=== PATIENT | male | born 1960 | race Caucasian/White ===

== ENCOUNTER 2018-12-23 19:46 | Observation (INO) | payer MEDICARE, OTHER ==
[2018-12-23 21:06] LABS: Absolute Lymphocytes (CBC) 1.4 K/uL (0.7-4.9); Absolute Neutrophil 10.5 K/uL (1.8-8.0); Basophils % 0.6 % (0-1.3); Eosinophils % 1.2 % (0-4.4); Hematocrit 47.4 % (39.6-49.0); Lymphocytes % 10.7 % (15.3-44.8); Monocytes % 7.9 % (3.3-12.3)
[2018-12-23 21:17] LABS: Protime INR 1.01
[2018-12-23 21:26] LABS: ALT/SGPT 31 U/L (12-78); AST/SGOT 25 U/L (15-37); Albumin 3.7 g/dL (3.4-5.0); Alkaline Phosphatase 96 U/L (45-117); BUN Blood Urea Nitrogen 21 mg/dL (7-18); Bicarbonate 25 mmol/L (21-32); Bilirubin Direct < 0.1 mg/dL (0-0.2); Bilirubin Total 0.3 mg/dL (0.2-1.0); CKMB Creatine Kinase MB 1.1 ng/mL (0.3-3.6); Creatine Phosphokinase 99 U/L (39-308); Glucose Level 85 mg/dL (74-106); Magnesium 2.2 mg/dL (1.8-2.4); Potassium 3.7 mmol/L (3.5-5.1); Protein, Total 7.1 g/dL (6.4-8.2); Sodium Level 136 mmol/L (136-145); Troponin (Emerg Dept Use Only) < 0.02 ng/mL (0.0-0.045)
[2018-12-23 23:21] LABS: Urine Blood NEGATIVE (NEG); Urine Glucose NEGATIVE (NEG); Urine Protein 1+ (NEG); Urine Specific Gravity >1.030 (1.005-1.030); Urine pH 5.5 (5.0-7.0)
--- NOTE | 2018-12-23 23:25 | ER ---
Nurse's Notes [facility] Name: Roberto Carlos Fuchs Age: 58 yrs Sex: Male : 1960 Arrival Date: 12/23/2018 Time: 19:50 Bed 28 Private MD: Diagnosis: Syncope and collapse Presentation: 12/23 19:53 Presenting complaint: Patient states: patient been in the heat all day. drinking beer rv in a bar and he felt he is going to faint. hit the right side of her body. hit the head on the door frame. he was conscious when we came. alert and oriented. denies any history of seizure. complains of right leg pain. Transition of care: patient was not received from another setting of care. Onset of symptoms was December 23, 2018 at 19:30. Risk Assessment: Do you want to hurt yourself or someone else? Patient reports no desire to harm self or others. Initial Sepsis Screen: Does the patient meet any 2 criteria? No. Patient's initial sepsis screen is negative. Does the patient have a suspected source of infection? No. Patient's initial sepsis screen is negative. Care prior to arrival: None. 19:53 Method Of Arrival: EMS: [facility] 19:53 Acuity: TIM 3 rv Triage Assessment: 19:56 General: Appears in no apparent distress. comfortable, Behavior is calm, cooperative. rv Pain: Complains of pain in right leg. EENT: No signs and/or symptoms were reported regarding the EENT system. Neuro: Level of Consciousness is awake, alert, obeys commands, Oriented to person, place, time, situation, Seizure activity reported prior to arrival. Patient is post-ictal at this time. Cardiovascular: Patient's skin is warm and dry. Respiratory: Airway is patent. GI: No signs and/or symptoms were reported involving the gastrointestinal system. : No signs and/or symptoms were reported regarding the genitourinary system. Derm: Skin is intact. Musculoskeletal: No signs and/or symptoms reported regarding the musculoskeletal system. Historical: - Allergies: 19:59 No Known Allergies; rv - Home Meds: 19:59 Atenolol Oral [Active]; Celebrex Oral [Active]; rv - PMHx: 19:59 Hypertension; juvenile rheumatoid arthritis; rv - Immunization history:: Adult Immunizations not up to date. - Social history:: Smoking status: Patient uses tobacco products, smokes one-half pack cigarettes per day, Patient uses alcohol, weekly. - Ebola Screening: : No symptoms or risks identified at this time. Screenin:37 Abuse screen: Denies threats or abuse. Denies injuries from another. Nutritional rv screening: No deficits noted. Tuberculosis screening: No symptoms or risk factors identified. Fall Risk None identified. Assessment: 20:37 Reassessment: SEE TRIAGE NOTES. rv 21:21 Reassessment: Patient appears in no apparent distress at this time. Patient and/or rv family updated on plan of care and expected duration. Pain level reassessed. Patient is alert, oriented x 3, equal unlabored respirations, skin warm/dry/pink. CT SCAN IS DONE. DR JACKSON HAVE BEEN TO THE ROOM AND TALKED TO THE PATIENT. 12/24 01:00 Reassessment: Patient appears in no apparent distress at this time. Patient and/or rv family updated on plan of care and expected duration. Pain level reassessed. Patient is alert, oriented x 3, equal unlabored respirations, skin warm/dry/pink. Vital Signs: 12/23 19:56 BP 100 / 78; Pulse 78; Resp 16; Temp 98; Pulse Ox 95% ; Weight 52.16 kg; Height 5 ft. 2 rv in. (157.48 cm); 20:30 BP 99 / 71; Pulse 72; Resp 17; Pulse Ox 94% ; rv 21:15 BP 110 / 83; Pulse 77; Resp 16; Pulse Ox 99% ; rv 22:37 BP 118 / 92; Pulse 76; Resp 13; Pulse Ox 98% ; rv 23:13 BP 123 / 93; Pulse 75; Resp 16; Temp 98.7; Pulse Ox 97% ; rv 12/24 00:00 BP 133 / 93; Pulse 76; Resp 19; Pulse Ox 96% ; rv 00:30 BP 127 / 94; Pulse 77; Resp 17; Pulse Ox 100% ; rv 01:00 BP 134 / 90; Pulse 84; Resp 18; Pulse Ox 99% ; rv 01:30 BP 130 / 96; Pulse 77; Resp 20; Temp 98.5; Pulse Ox 96% ; rv 12/23 19:56 Body Mass Index 21.03 (52.16 kg, 157.48 cm) rv [place] Coma Score: 12/23 19:56 Eye Response: spontaneous(4). Verbal Response: oriented(5). Motor Response: obeys rv commands(6). Total: 15. ED Course: 19:50 Patient arrived in ED. am2 19:53 Raj Brown, RN is Primary Nurse. rv 19:55 Triage completed. rv 20:33 Ranjan Jackson MD is Attending Physician. tw4 20:36 Maintain EMS IV. Dressing intact. Good blood return noted. Site clean \T\ dry. Gauge \T\ rv site: G20 RAC. 20:36 Patient has correct armband on for positive identification. Placed in gown. Bed in low rv position. Call light in reach. Side rails up X2. Seizure precautions initiated. carton stenciler on. Pulse ox on. NIBP on. 20:37 Arm band placed on right wrist. Patient placed in an exam room, on a stretcher, on rv transmission calibration engineer, on pulse oximetry, Patient notified of wait time. EKG completed in triage. Results shown to MD. 21:18 CT Stroke Brain w/o Contrast In Process Unspecified. EDMS 22:02 Femur Left XRAY In Process Unspecified. EDMS 23:23 Cortez Ambriz MD is Hospitalizing Provider. tw4 12/24 02:16 No provider procedures requiring assistance completed. Patient admitted, IV remains in rv place. Administered Medications: 02:20 Drug: traMADol 50 mg Route: PO; rv 02:26 Follow up: Response: Medication administered at discharge. rv Outcome: 12/23 23:24 Decision to Hospitalize by Provider. tw4 12/24 02:16 Admitted to Tele accompanied by tech, via stretcher, room 410, with chart, Report rv called to Madeleine Condition: good Instructed on the need for admit. 02:28 Patient left the ED. rv Signatures: Dispatcher [employer] EDMS Zehra Jaffe am2 Ranjan Jackson MD MD tw4 Raj Brown, ALIS RN rv
--- NOTE | 2018-12-23 23:25 | EDPHYS ---
Physician Documentation [facility] Name: Roberto Carlos Fuchs Age: 58 yrs Sex: Male : 1960 Arrival Date: 12/23/2018 Time: 19:50 Bed 28 Private MD: ED Physician Ranjan Brewster HPI: 12/24 05:57 This 58 yrs old Male presents to ER via EMS with complaints of Seizure. tw4 05:57 The patient has experienced syncope. Onset: The symptoms/episode began/occurred today. tw4 Duration: This was a single episode. Context: the episode(s) was witnessed, by no one. Associated injury: Right lower extremity: right quadriceps. The patient has not experienced similar symptoms in the past. Historical: - Allergies: 12/23 19:59 No Known Allergies; rv - Home Meds: 19:59 Atenolol Oral [Active]; Celebrex Oral [Active]; rv - PMHx: 19:59 Hypertension; juvenile rheumatoid arthritis; rv - Immunization history:: Adult Immunizations not up to date. - Social history:: Smoking status: Patient uses tobacco products, smokes one-half pack cigarettes per day, Patient uses alcohol, weekly. - Ebola Screening: : No symptoms or risks identified at this time. ROS: 12/24 05:57 Constitutional: Negative for fever, chills, and weight loss, Cardiovascular: Negative tw4 for chest pain, palpitations, and edema, Respiratory: Negative for shortness of breath, cough, wheezing, and pleuritic chest pain, Abdomen/GI: Negative for abdominal pain, nausea, vomiting, diarrhea, and constipation, MS/Extremity: Negative for injury and deformity, Skin: Negative for injury, rash, and discoloration. Neuro: Positive for syncope, Negative for altered mental status, dizziness, gait disturbance, headache, hearing loss, numbness, seizure activity, speech changes, tinnitus, visual changes. Exam: 05:57 Abdomen/GI: Inspection: abdomen appears normal. tw4 05:57 Constitutional: This is a well developed, well nourished patient who is awake, alert, and in no acute distress. Head/Face: Normocephalic, atraumatic. Chest/axilla: Normal chest wall appearance and motion. Nontender with no deformity. No lesions are appreciated. Cardiovascular: Regular rate and rhythm with a normal S1 and S2. No gallops, murmurs, or rubs. Normal PMI, no JVD. No pulse deficits. Respiratory: Lungs have equal breath sounds bilaterally, clear to auscultation and percussion. No rales, rhonchi or wheezes noted. No increased work of breathing, no retractions or nasal flaring. Abdomen/GI: Soft, non-tender, with normal bowel sounds. No distension or tympany. No guarding or rebound. No evidence of tenderness throughout. Back: No spinal tenderness. No costovertebral tenderness. Full range of motion. MS/ Extremity: Pulses equal, no cyanosis. Neurovascular intact. Full, normal range of motion. Neuro: Awake and alert, GCS 15, oriented to person, place, time, and situation. Cranial nerves II-XII grossly intact. Motor strength 5/5 in all extremities. Sensory grossly intact. Cerebellar exam normal. Normal gait. Vital Signs: 12/23 19:56 BP 100 / 78; Pulse 78; Resp 16; Temp 98; Pulse Ox 95% ; Weight 52.16 kg; Height 5 ft. 2 rv in. (157.48 cm); 20:30 BP 99 / 71; Pulse 72; Resp 17; Pulse Ox 94% ; rv 21:15 BP 110 / 83; Pulse 77; Resp 16; Pulse Ox 99% ; rv 22:37 BP 118 / 92; Pulse 76; Resp 13; Pulse Ox 98% ; rv 23:13 BP 123 / 93; Pulse 75; Resp 16; Temp 98.7; Pulse Ox 97% ; rv 12/24 00:00 BP 133 / 93; Pulse 76; Resp 19; Pulse Ox 96% ; rv 00:30 BP 127 / 94; Pulse 77; Resp 17; Pulse Ox 100% ; rv 01:00 BP 134 / 90; Pulse 84; Resp 18; Pulse Ox 99% ; rv 01:30 BP 130 / 96; Pulse 77; Resp 20; Temp 98.5; Pulse Ox 96% ; rv 12/23 19:56 Body Mass Index 21.03 (52.16 kg, 157.48 cm) rv [place] Coma Score: 12/23 19:56 Eye Response: spontaneous(4). Verbal Response: oriented(5). Motor Response: obeys rv commands(6). Total: 15. MDM: 20:53 Patient medically screened. tw4 12/24 05:57 Differential Diagnosis: vasovagal episode. Data reviewed: vital signs, nurses notes. Data interpreted: Pulse oximetry:. Test interpretation: by ED physician or midlevel provider: ECG. Counseling: I had a detailed discussion with the patient and/or guardian regarding: the historical points, exam findings, and any diagnostic results supporting the discharge/admit diagnosis, lab results, radiology results. Physician consultation: Cortez Ambriz MD regarding admission, and will see patient. 12/23 20:44 Order name: UDS [facility] 12/23 20:44 Order name: Troponin (emerg Dept Use Only) [facility] 12/23 20:44 Order name: CPK [facility] 12/23 20:44 Order name: Ckmb [facility] 12/23 20:44 Order name: Magnesium; Complete Time: 22:04 [facility] 12/23 22:04 Interpretation: Within normal limits. [facility] 12/23 20:44 Order name: Hepatic Function; Complete Time: 22:04 [facility] 12/23 22:04 Interpretation: Within normal limits. [facility] 12/23 20:44 Order name: Basic Metabolic Panel; Complete Time: 22:03 [facility] 12/23 22:03 Interpretation: Normal except: BUN 21. [facility] 12/23 20:44 Order name: CBC with Diff; Complete Time: 22:03 [facility] 12/23 22:03 Interpretation: Normal except: WBC 13.2; PLT 150; LYM% 10.7; ANNA% 79.6; NEUT A 10.5. [facility] 12/23 20:44 Order name: Protime (+inr) [facility] 12/23 20:44 Order name: Ptt, Activated; Complete Time: 22:04 [facility] 12/23 22:04 Interpretation: Within normal limits. [facility] 12/23 20:44 Order name: Urine Drug Screen [facility] 12/23 20:44 Order name: Troponin (Emerg Dept Use Only) [facility] 12/23 20:45 Order name: Creatine Phosphokinase [facility] 12/23 20:45 Order name: CKMB Creatine Kinase MB [facility] 12/23 20:44 Order name: CT Stroke Brain w/o Contrast [facility] 12/23 20:44 Order name: EKG; Complete Time: 20:45 [facility] 12/23 20:44 Order name: Accucheck; Complete Time: 20:57 [facility] 12/23 20:44 Order name: Cardiac monitoring; Complete Time: 20:45 tw4 12/23 20:44 Order name: EKG - Nurse/Tech; Complete Time: 20:46 tw4 12/23 20:44 Order name: IV Saline Lock; Complete Time: 20:46 4 12/23 20:44 Order name: Labs collected and sent; Complete Time: 20:46 [facility] 12/23 20:44 Order name: NPO; Complete Time: 20:46 [facility] 12/23 20:44 Order name: O2 Per Protocol; Complete Time: 21:26 [facility] 12/23 20:44 Order name: O2 Sat Monitoring; Complete Time: 21:26 [facility] 12/23 20:44 Order name: Stroke Swallow Screen; Complete Time: 21:26 [facility] 12/23 20:54 Order name: Glucose, Ancillary Testing; Complete Time: 23:22 [facility] 12/23 21:19 Order name: Femur Left XRAY [facility] 12/23 23:14 Order name: Urine Dipstick--Ancillary (enter results) [facility] 12/23 23:22 Order name: Alcohol Level; Complete Time: 00:36 tw4 EC:57 Rate is 72 beats/min. Rhythm is regular. QRS [place] is Normal. CA interval is normal. QRS tw4 interval is normal. No Q waves. T waves are Normal. No ST changes noted. Clinical impression: Normal ECG. Interpreted by me. Reviewed by me. Administered Medications: 02:20 Drug: traMADol 50 mg Route: PO; rv 02:26 Follow up: Response: Medication administered at discharge. rv Disposition: 12/23/18 23:24 Hospitalization ordered by Cortez Ambriz for Observation. Preliminary diagnosis is Syncope and collapse. - Bed requested for Telemetry/MedSurg (observation). - Status is Observation. rv - Condition is Stable. - Problem is new. - Symptoms have improved. UTI on Admission? No Signatures: Dispatcher [employer] Luciana Moses, ALIS RN Ranjan Brewster MD MD tw4 Raj Brown RN RN rv Corrections: (The following items were deleted from the chart) 02:08 12/23 23:24 Hospitalization Ordered by Cortez Ambriz MD for Observation. Preliminary cg diagnosis is Syncope and collapse. Bed requested for Telemetry/MedSurg (observation). Status is Observation. Condition is Stable. Problem is new. Symptoms have improved. UTI on Admission? No. tw4 12/24 02:28 02:08 12/23/2018 23:24 Hospitalization Ordered by Cortez Ambriz MD for Observation. rv Preliminary diagnosis is Syncope and collapse. Bed requested for Telemetry/MedSurg (observation). Status is Observation. Condition is Stable. Problem is new. Symptoms have improved. UTI on Admission? No. cg
[2018-12-23 23:33] LABS: Barbiturates NEGATIVE (NEGATIVE); Benzodiazepines NEGATIVE (NEGATIVE); Cocaine NEGATIVE (NEGATIVE); METHAMPHETAM NEGATIVE (NEGATIVE); Methadone NEGATIVE (NEGATIVE); Opiates NEGATIVE (NEGATIVE); Phencyclidine NEGATIVE (NEGATIVE); THC Cannibis NEGATIVE (NEGATIVE)
[2018-12-23] MEDS ORDERED: NA CHLORIDE 0.9% 1,000 ML ONE (23:45)
--- NOTE | 2018-12-24 00:53 | P.HP ---
Certification for Inpatient Patient admitted to: Observation With expected LOS: <2 Midnights Practitioner: I am a practitioner with admitting privileges, knowledge of patient current condition, hospital course, and medical plan of care. Services: Services provided to patient in accordance with Admission requirements found in Title 42 Section 412.3 of the Code of Federal Regulations Patient History Date of Service: 12/24/18 Reason for admission: syncope History of Present Illness: Mr Fuchs is a 58 years old male with history of HTN, Juvenile rheumatoid arthritis, who was working under to sun all day today. He only had breakfast in the morning, he was drinking water and had an electrolyte bar in the afternoon. Then the patient went to rest for a few hours, took a tramadol pill for his chronic pain, and then went to the bar. He drank 1 and 1/2 beer only. Then he stood up from the chair, became dizzy and faint. Witnessed by people in the bar , who said that he was unconscious for a couple of minutes, some body movement which were questioning about possible seizure, however, no bite tongue lopez, loose sphincters. He denied palpitations prior to fell. Lab work shows 13.2K WBC , no fever, electrolytes WNL, BUN slightly elevated, likely consistent with volume depletion. He is complaining of right hip pain, XR shws no acute fracture or dislocations. CT head shows no acute abnormalities, however, incidentally found microcalcifications, it was recommended further work up with a brain MRI. Home medications list reviewed: Yes - Past Medical/Surgical History -: HTN -: juvenile rheumatoid arthritis -: right total hip arthroscopy - Family History Family History: Reviewed- Non-Contributory - Social History Smoking Status: Current every day smoker Counseled patient to stop smoking for: less than 10 minutes Alcohol use: Yes CD- Drugs: No Place of Residence: Home Review of Systems 10-point ROS is otherwise unremarkable Physical Examination - Physical Exam General: Alert, In no apparent distress HEENT: Atraumatic, PERRLA, Mucous membr. moist/pink, EOMI, Sclerae nonicteric Neck: Supple, 2+ carotid pulse no bruit, No LAD, Without JVD or thyroid abnormality Respiratory: Clear to auscultation bilaterally, Normal air movement Cardiovascular: Regular rate/rhythm, Normal S1 S2 Gastrointestinal: Normal bowel sounds, No tenderness Musculoskeletal: No tenderness Integumentary: No rashes Neurological: Normal gait, Normal speech, Normal strength at 5/5 x4 extr, Normal tone, Normal affect Lymphatics: No axilla or inguinal lymphadenopathy - Studies Laboratory Data (last 24 hrs) 12/23/18 20:51: PT 11.9, INR 1.01, APTT 33.0 12/23/18 20:51: WBC 13.2 H, Hgb 15.7, Hct 47.4, Plt Count 150 L 12/23/18 20:51: Sodium 136, Potassium 3.7, BUN 21 H, Creatinine 0.86, Glucose 85 , Magnesium 2.2, Total Bilirubin 0.3, AST 25, ALT 31, Alkaline Phosphatase 96 Assessment and Plan - Problems (Diagnosis) (1) Syncope Current Visit: Yes Status: Acute Qualifiers: Syncope type: unspecified Qualified Code(s): R55 - Syncope and collapse (2) Volume depletion Current Visit: Yes Status: Acute (3) Acute renal injury Current Visit: Yes Status: Acute (4) Calcification of brain Current Visit: Yes Status: Acute - Plan The patient will be admitted due to syncope episode, no clear etiology, however , differential diagnosis include volume depletion, alcohol intoxication, seizure. Will order a brain MRI due to incidental finding of bran microcalcifications. - Advance Directives Does patient have a Living Will: No Does patient have a Durable POA for Healthcare: No - Code Status/Comfort Care Code Status Assessed: Yes Code Status: Full Code
[2018-12-24] MEDS ORDERED: TRAMADOL HCL 50 MG TAB ONE (02:34)
[2018-12-24] MEDS ORDERED: ONDANSETRON 4 MG/2 ML VIAL IV PRN (02:59)
[2018-12-24] MEDS: NA CHLORIDE 0.9% 1,000 ML IV SCH ×3 (03:21→20:46)
[2018-12-24 03:40] VITALS: BMI 22.3
[2018-12-24 03:55] VITALS: O2SAT 96
[2018-12-24 06:58] LABS: Absolute Lymphocytes (CBC) 1.7 K/uL (0.7-4.9); Absolute Monocytes 0.9 K/uL (0.1-1.3); Absolute Neutrophil 6.5 K/uL (1.8-8.0); Basophils % 0.6 % (0-1.3); Eosinophils % 1.3 % (0-4.4); Hematocrit 43.8 % (39.6-49.0); Lymphocytes % 18.2 % (15.3-44.8); MPV 10.2 fL (7.6-11.3); Monocytes % 9.5 % (3.3-12.3); RBC Red Blood Cell Count 4.93 M/uL (4.33-5.43)
[2018-12-24 07:10] LABS: BUN Blood Urea Nitrogen 15 mg/dL (7-18); Bicarbonate 25 mmol/L (21-32); Glucose Level 79 mg/dL (74-106); Sodium Level 140 mmol/L (136-145)
--- NOTE | 2018-12-24 07:13 | RAD REPORT ---
EXAM DESCRIPTION: RAD - Femur Left - 12/23/2018 10:04 pm CLINICAL HISTORY: Fall, right-sided leg pain COMPARISON: None. FINDINGS: No acute fracture is identifiable. Patient has a right total hip prosthesis in place. No r adiographic evidence for loosening. Greater trochanter is more superiorly positioned than typically s een. This may be the sequela of multiple surgeries to the right femur and hip joint. An acute compone nt is not identifiable. Patient also has a right total knee prosthesis that is may be a revision as w ell. No radiographic evidence for loosening. There is evidence for bone loss in the distal femur and some bone loss along the tibial plateau. This does not appear to be acute and may be again the seque la of multiple prior surgeries, fractures or procedures. No foreign body in the soft tissues. No suspicious soft tissue finding. IMPRESSION: No fracture or other acute finding of the femur. Total prostheses at the hip joint and knee joint are present. There is evidence for multiple procedur es at each joint but no acute component identifiable.
--- NOTE | 2018-12-24 09:42 | RAD REPORT ---
EXAM DESCRIPTION: MRI - Brain W/Wo Cont - 12/24/2018 8:57 am CLINICAL HISTORY: Syncope COMPARISON: CT head December 23 TECHNIQUE: Sagittal and axial T1-weighted images were obtained. Axial PD/heavily T2-weighted and T2- FLAIR images were obtained along with axial DWI/ADC mapping sequences. Coronal heavily T2 weighted s equence obtained. Axial and coronal post-contrast T1-weighted images were also obtained. A 12 ml Mul tihance contrast following utilized. FINDINGS: No intracranial hemorrhage, mass or acute infarction. There is no edema or shift of midli ne structures. No extra-axial fluid collections. Navarro-matter/white matter junction is preserved. Sig nal voids are seen as a normal finding in the major intracranial vessels. Atrophy changes are present. These are relatively mild but greater than expected in a patient this ag e. Numerous 2-10 mm white matter signal abnormalities are scattered in the cerebral white matter of e ach frontal lobe. Minimal parietal white matter signal abnormality. Minimal signal abnormality in the superior right cerebellum and posterior brainstem. Post-contrast images show normal enhancement. No dural thickening. Enhancement in the occipital diplo ic space is not associated with any destructive process and is doubtful as being clinically significa nt. Mastoid air cells and paranasal sinuses are clear. No globe or orbital content abnormality. No sella or supra sella mass. IMPRESSION: No acute infarction changes are present. No hemorrhage, mass or acute intracranial findi ng. Extensive white matter signal abnormality in a predominantly frontal lobe pattern. Findings may refle ct advanced for age chronic ischemic change. Metabolic disease or ETOH related white matter disease w ould be considerations.
[2018-12-24] MEDS: CELECOXIB 100 MG CAPSULE PO SCH (12:04)
[2018-12-24] MEDS: TRAMADOL HCL 50 MG TAB PO PRN (12:04)
[2018-12-24] MEDS: PANTOPRAZOLE 40MG TABLET PO SCH (12:05)
[2018-12-24] MEDS: ATENOLOL 25 MG TAB PO SCH (12:05)
[2018-12-24] MEDS: ASPIRIN EC 81 MG TAB PO SCH (12:06)
--- NOTE | 2018-12-24 12:46 | RAD REPORT ---
EXAM DESCRIPTION: CT - Ct Stroke Brain Wo Cont - 12/23/2018 10:01 pm ADDENDUM #1 Addendum: I discussed these critical findings with Dr. Brewster at 2131 hours on 12/23/2018. Electronically signed by: Andrew Early 12/23/2018 10:00 PM CDT End of Addendum EXAM DESCRIPTION: Ct Stroke Brain Wo Cont CLINICAL HISTORY: SEIZURE COMPARISON: None Available TECHNIQUE: Contiguous axial CT images of the head were obtained. Coronal and sagittal reconstructions were created from the axial data. This exam was performed according to our departmental dose-optimization program, which includes autom ated exposure control, adjustment of the mA and/or kV according to patient size and/or use of iterati ve reconstruction technique. FINDINGS: Poorly defined foci of decreased attenuation do not exert significant mass effect on surro unding structures and may be sequela of prior insult but are nonspecific. There are a few punctate pr obable calcifications associated with these lesions. None of the possible calcifications measures mor e than 2 mm diameter and artifact is possible. There is no other evidence of acute mass, mass effect, midline shift or hemorrhage. The ventricles an d extra-axial CSF spaces are unremarkable. No acute abnormalities of the bones is seen. However there is diffuse mottling of the calvarium. This is nonspecific. Attenuation of the basilar artery and to a lesser extent of the MCAs appears increased. This can be s een in the setting of intraluminal thrombus but I would expect dramatic neurologic focal abnormality in that case. Clinical correlation will be helpful. CTA would provide greater detail of the vessels o f desired. Hemoconcentration perhaps due to dehydration is an alternate possibility. IMPRESSION: No acute intracranial abnormality. Scattered abnormalities of the brain parenchyma with possible tiny punctate calcifications are nonspecific but possibilities include etiologies such as ne urocysticercosis, sequela of inflammatory/infectious process, less likely neoplasm, sequela of small vessel disease insults, or widespread vascular malformations. Etiology such as MS is less likely but not excluded. Widespread bone attenuation abnormalities are also nonspecific. Metastases are not excl uded. Follow-up MRI to include contrast is recommended for further evaluation of the brain parenchyma . I recommend MRA and MRV at that time as well. Electronically signed by: Andrew Early 12/23/2018 9:28 PM CDT Due to temporary technical issues with the PACS/Fluency reporting system, reports are being signed by the in house radiologist as a courtesy to ensure prompt reporting. The interpreting radiologist is f ully responsible for the content of the report.
--- NOTE | 2018-12-24 12:52 | EKG ---
Test Date: 2018-12-23 Test Time: 20:24:12 Strategy Intern: MEASUREMENT RESULTS: Intervals: Rate: 72 PA: 180 QRSD: 86 QT: 380 QTc: 416 [place]: P: 68 PA: 180 QRS: 11 T: 22 INTERPRETIVE STATEMENTS: Normal sinus rhythm Right atrial enlargement Borderline ECG No previous ECG available for comparison Electronically Signed On 12-24-18 12:50:28 CDT by Martin Solis
--- NOTE | 2018-12-24 13:44 | RAD REPORT ---
EXAM DESCRIPTION: RAD - Ankle Left 2 View - 12/24/2018 1:25 pm CLINICAL HISTORY: Fall, left ankle pain COMPARISON: None. FINDINGS: No acute fracture changes identifiable. Tibiotalar fusion changes are present. There may b e fusion with the cuboid and navicular bones as well. These 2 bones are not optimally visualized on a nkle examination. Patient has advanced degenerative change at the tibiotalar joint space. The joint space is narrowed. There is flattening of the dome of the talus with irregular contour and sclerotic changes to the ro cular surfaces of the talus and tibial plafond. There is remodeling along the medial aspect of the robi int space. No joint effusion confirmed. Delete select soft tissues around the ankle are mildly promin ent with baseline unknown. IMPRESSION: Very advanced degenerative changes are present to the ankle joint as detailed. No fracture or acute finding seen.
--- NOTE | 2018-12-24 14:11 | RAD REPORT ---
EXAM DESCRIPTION: - CP - 12/24/2018 1:58 pm CLINICAL HISTORY: Syncope COMPARISON: None. TECHNIQUE: Real-time sonographic evaluation of both carotid systems was performed. Navarro scale and Do ppler interrogation were performed with waveform tracing bilaterally. FINDINGS: Normal high resistance waveforms are noted in both external carotid arteries. The common c arotid arteries and internal carotid arteries show normal low resistance waveforms. No significant plaquing in the right-side carotid vasculature. Small focus of calcified plaquing breen ge seen in the proximal left internal carotid artery. There is no luminal narrowing. No dissection. P eak systolic and end diastolic velocity values and the ICA/CCA ratios are in the non-hemodynamically significant range. Antegrade flow seen in both vertebral arteries. Velocity values and ratios were recorded and are retained in the patient's imaging records. IMPRESSION: Minimal calcified plaquing changes in the left internal carotid artery without luminal n arrowing. No evidence of a hemodynamically significant stenosis in the bilateral carotid vasculature.
--- NOTE | 2018-12-24 15:49 | PN ---
Date of Progress Note: 12/24/2018 Subjective: The patient is seen and examined. Chart reviewed and case discussed with RN. The patie nt has not had any further syncopal episodes since admission. No alcohol withdrawal effects. Medications: Medication list reviewed. Physical Examination: Vital Signs: Temperature 98.9, heart rate 73, blood pressure 125/86, respirations 18, O2 of 96% on r oom air. General: Awake, alert, and oriented x3, not in any acute distress, male. CV: S1, S2. Peripheral pulses present. No murmurs. Respiratory: Moving air well bilaterally. No wheezing or stridor. Gastrointestinal: Abdomen is soft, nontender, nondistended. Positive bowel sounds. No guarding or rigidity. Extremities: No clubbing, cyanosis, or edema. Neurologic: Nonfocal. Musculoskeletal: Arthritic changes present in bilateral hands. Laboratory Data: Sodium 140, potassium 4, chloride 109, CO2 of 25, BUN 15, creatinine 0.62, glucose 79, calcium 8.1. WBC 9.3, H and H 15 and 43.8, platelets 141. MRI of the brain shows no acute hemorrhage, stroke, or mass. Extensive white matter signal abnormali ty in a predominantly frontal lobe pattern. Findings may reflect advanced for age, chronic ischemic change, metabolic disease, or alcohol-related white matter disease would be a consideration. Assessment And Plan: This is a 58-year-old male with: 1.Syncopal episode, unclear etiology, may be related to his drinking, possible orthostatic hypotensi on. We will check carotid artery ultrasound, check orthostatic vital signs. Doubt seizure episode. 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 The patient does have history of chronic drinki ng. 2.Volume depletion. Continue with IV fluids. 3.Abnormal MRI of the brain. The patient has frontal dementia with showing changes that are more ad vanced than as expected for age, may be related to alcohol consumption or other metabolic disease. T he patient will need to follow up with Neurology. 4.Neutrophilic leukocytosis, likely related to acute phase reaction, resolved. 5.Juvenile rheumatoid arthritis. We will continue on Celebrex. 6.Mixed hyperlipidemia, continue statin. 7.Deep venous thrombosis prophylaxis, addressed. PLAN: 1.Resume home medications as appropriate. 2.Outpatient Neurology eval. 3.Check orthostatic vital signs and carotid artery ultrasound. /NATHALIE Voice ID: [id number] Report ID: [id number]
[2018-12-24] MEDS ORDERED: ATORVASTATIN 10 MG TAB PO SCH (21:00)
[2018-12-25] MEDS: TRAMADOL HCL 50 MG TAB PO PRN ×2 (01:39→11:58)
[2018-12-25 05:38] LABS: Absolute Lymphocytes (CBC) 1.7 K/uL (0.7-4.9); Absolute Monocytes 0.6 K/uL (0.1-1.3); Absolute Neutrophil 3.1 K/uL (1.8-8.0); Eosinophils % 3.7 % (0-4.4); Hematocrit 44.7 % (39.6-49.0); Lymphocytes % 30.4 % (15.3-44.8); MPV 10.3 fL (7.6-11.3); Monocytes % 11.1 % (3.3-12.3); RBC Red Blood Cell Count 4.96 M/uL (4.33-5.43)
[2018-12-25 05:45] LABS: BUN Blood Urea Nitrogen 14 mg/dL (7-18); Bicarbonate 27 mmol/L (21-32); Glucose Level 72 mg/dL (74-106); Potassium 4.1 mmol/L (3.5-5.1); Sodium Level 140 mmol/L (136-145)
[2018-12-25] MEDS: PANTOPRAZOLE 40MG TABLET PO SCH (06:17)
[2018-12-25] MEDS: NA CHLORIDE 0.9% 1,000 ML IV SCH (06:17)
[2018-12-25] MEDS: CELECOXIB 100 MG CAPSULE PO SCH (08:11)
[2018-12-25] MEDS: ATENOLOL 25 MG TAB PO SCH (08:12)
[2018-12-25] MEDS: ASPIRIN EC 81 MG TAB PO SCH (08:12)
--- NOTE | 2018-12-25 11:30 | P.SSS ---
Patient History Date of Service: 12/25/18 Reason for admission: syncope History of Present Illness: Mr Fuchs is a 58 years old male with history of HTN, Juvenile rheumatoid arthritis, who was working under to sun all day today. He only had breakfast in the morning, he was drinking water and had an electrolyte bar in the afternoon. Then the patient went to rest for a few hours, took a tramadol pill for his chronic pain, and then went to the bar. He drank 1 and 1/2 beer only. Then he stood up from the chair, became dizzy and faint. Witnessed by people in the bar , who said that he was unconscious for a couple of minutes, some body movement which were questioning about possible seizure, however, no bite tongue lopez, loose sphincters. He denied palpitations prior to fell. Lab work shows 13.2K WBC , no fever, electrolytes WNL, BUN slightly elevated, likely consistent with volume depletion. He is complaining of right hip pain, XR shws no acute fracture or dislocations. CT head shows no acute abnormalities, however, incidentally found microcalcifications, it was recommended further work up with a brain MRI. Allergies No Known Allergies Allergy (Unverified 12/24/18 01:22) Home Medications: Aspirin [Aspirin EC 81 MG] 81 mg PO DAILY 12/24/18 Atenolol [Tenormin*] 25 mg PO DAILY 12/24/18 Atorvastatin Calcium 10 mg PO DAILY 12/24/18 Celecoxib [Celebrex] 200 mg PO DAILY 12/24/18 Omeprazole [Prilosec] 40 mg PO DAILY 12/24/18 traMADol HCL [Ultram*] 50 mg PO BIDP PRN 12/24/18 - Past Medical/Surgical History Has patient received pneumonia vaccine in the past: No Diabetic: No -: HTN -: juvenile rheumatoid arthritis -: acid reflux -: hyperlipidemia -: bilateral hip and knee replacements - Family History Family History: Reviewed- Non-Contributory - Family History Father -: Heart disease, Lung disease, GI disease, Cancer Notes: testicular ca prostate ca. rheumatic fever Mother -: Heart disease, GI disease, Other (see notes) Notes: alzheimers Brother -: Heart disease - Social History Smoking Status: Current every day smoker Alcohol use: Yes CD- Drugs: No Caffeine use: Yes Place of Residence: Home Review of Systems 10-point ROS is otherwise unremarkable Physical Examination - Vital Signs Temperature: 97.8 F Blood Pressure: 119/78 Pulse: 67 Respirations: 15 Pulse Ox (%): 96 - Physical Exam General: Alert, In no apparent distress, Oriented x3 HEENT: Atraumatic, PERRLA, Mucous membr. moist/pink, EOMI, Sclerae nonicteric Neck: Supple, 2+ carotid pulse no bruit, No LAD, Without JVD or thyroid abnormality Respiratory: Clear to auscultation bilaterally, Normal air movement Cardiovascular: Regular rate/rhythm, Normal S1 S2 Gastrointestinal: Normal bowel sounds, No tenderness Musculoskeletal: No tenderness, Other (Arthritic changes in bilateral hands) Integumentary: No rashes Neurological: Normal gait, Normal speech, Normal strength at 5/5 x4 extr, Normal tone, Normal affect Lymphatics: No axilla or inguinal lymphadenopathy Treatment Summary: The patient was admitted for syncopal episode, unclear etiology. His differential diagnosis did include plan depletion, alcohol intoxication, seizure. He does have a history of chronic drinking. His MRI was negative for any acute abnormalities. The MRI did show incidental findings of some frontal lobe advanced dementia, could be secondary to metabolic disease versus alcohol usage. A carotid artery ultrasound was done, which is negative for any acute or hemodynamically significant stenosis. His orthostatics vital signs were negative for any orthostatic hypotension. He did not have any more episodes of syncope throughout the stay. He otherwise remained stable throughout the stay. He did request a platform walker to help with his history of juvenile rheumatoid arthritis. A prescription was provided to patient. He was counseled and educated on insurance not likely pain for a walker. He verbalized understanding that he may have to pay out of pocket. His treatment plan/findings/disease process was explained to him. All questions were answered and he verbalized understanding. He was then discharged home in a safe and stable manner. Prior to discharge, he was hemodynamically stable, alert oriented x3 in no acute distress. He was recommended to follow up with neurology for further evaluation/ management of his MRI findings. Information for neurologist was provided to patient on discharge. - Disposition Discharge Date: 12/25/18 Disposition: ROUTINE DISCHARGE Condition: GOOD Patient Discharge Instructions: Please follow up with your primary care physician in 2-3 days. The MRI of the brain, as discussed, shows abnormal findings. We recommend following up with a neurologist as an outpatient. Information for a neurologist has been provided to you. Please call the clinic and schedule an appointment. Please return to the emergency room for worsening symptoms. Diet: Regular Activity: Ad zahida
[2018-12-25 16:33] VITALS: BP 120/79; TEMP 98.6
== END 2018-12-25 18:29 | disposition home or self-care (01) ==
LOC: ER 19:46 → ERHOLD 12-24 00:39 → 4TH 12-24 02:16
PROVIDERS: ADMIT Internal Medicine; ATTEND Family Medicine
DX: R55 Syncope and collapse (principal); I10 Essential (primary) hypertension; M08.00 Unspecified juvenile rheumatoid arthritis of unspecified site; E78.2 Mixed hyperlipidemia; K21.9 Gastro-esophageal reflux disease without esophagitis; D72.828 Other elevated white blood cell count; E86.9 Volume depletion, unspecified; G93.89 Other specified disorders of brain; I65.22 Occlusion and stenosis of left carotid artery; N17.9 Acute kidney failure, unspecified; F03.90 Unspecified dementia, unspecified severity, without behavioral disturbance, psychotic disturbance, mood disturbance, and anxiety; F17.210 Nicotine dependence, cigarettes, uncomplicated; Z79.82 Long term (current) use of aspirin; Z79.899 Other long term (current) drug therapy
CPT/HCPCS: 96365; 96367; 93005; 85025 ×3; 80048 ×3; 36415 ×2; 80320; 83735; 82550; 85610; 82962 ×2; 80076; 80307 ×8; 85730; 81003; 84484; 82553; 70450; 73552; 73600; 93880; 70553; 97116 ×2; 97163; 97530 ×2; 99285; A9577; J7030 ×4; G0378 ×2